=== PATIENT | female | born 1985 | race Caucasian/White ===

== ENCOUNTER 2019-01-05 12:47 | Emergency (ER) | payer MEDICAID ==
--- NOTE | 2019-01-05 14:46 | C.PDOC ---
History Of Present Illness 33 y/o female pt presents to the ER c/o subjective fever since last night. Associated sx includes chills, sore throat and cough. 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 Pt does not have any other associated sx or complaints at this time. Time Seen by Provider: 01/05/19 12:57 Chief Complaint (Nursing): Flu-like Symptoms History Per: Patient History/Exam Limitations: no limitations Onset/Duration Of Symptoms: Days (x1) Current Symptoms Are (Timing): Still Present Past Medical History Reviewed: Historical Data, Nursing Documentation, Vital Signs Vital Signs: Last Vital Signs Temp 99.7 F H 01/05/19 12:50 Pulse 112 H 01/05/19 12:50 Resp 18 01/05/19 12:50 BP 128/96 H 01/05/19 12:50 Pulse Ox 98 01/05/19 12:50 Family History: States: Unknown Family Hx - Social History Hx Tobacco Use: No Hx Alcohol Use: No Hx Substance Use: No - Immunization History Hx Tetanus Toxoid Vaccination: Yes Hx Influenza Vaccination: No Hx Pneumococcal Vaccination: No Review Of Systems Constitutional: Positive for: Fever (subjective), Chills ENT: Positive for: Throat Pain Respiratory: Positive for: Cough Gastrointestinal: Negative for: Nausea, Vomiting Skin: Negative for: Rash Neurological: Negative for: Weakness, Numbness Physical Exam - Physical Exam Appears: Non-toxic, No Acute Distress Skin: Warm, Dry, No Rash Head: Normacephalic Eye(s): bilateral: Normal Inspection Ear(s): Bilateral: Normal Nose: Normal Oral Mucosa: Moist Throat: Normal, No Erythema, No Exudate, Other (uvula midline) Cardiovascular: Rhythm Regular Respiratory: Normal Breath Sounds, No Rales, No Rhonchi, No Wheezing Neurological/Psych: Oriented x3, Normal Speech, Normal Cognition ED Course And Treatment O2 Sat by Pulse Oximetry: 98 (RA) Pulse Ox Interpretation: Normal Medical Decision Making Medical Decision Making: Plans: -- POC urine -- Ibuprofen -- tylenol -- tamiflu Disposition Counseled Patient/Family Regarding: Diagnosis, Need For Followup, Rx Given - Disposition Referrals: [facility] [Outside] Disposition: HOME/ ROUTINE Disposition Time: 16:17 Condition: GOOD Additional Instructions: Drink increased fluids. Gargle with warm salty water several times a day. Alternate Tylenol with Motrin every 4 hours for fever and pain. Increased rest. Follow up in [facility] in 2-3 days;. Return to ER for any worse symptoms. Take Tamlflu as prescribed. Prescriptions: Acetaminophen [Tylenol 325mg tab] 650 mg PO Q6 #30 tab Ibuprofen [Motrin] 600 mg PO TID #30 tab Oseltamivir Phosphate [Tamiflu] 75 mg PO BID #10 capsule Instructions: Flu, Adult (DC) Forms: [email or web address] (Syrian), General Discharge Instructions - Clinical Impression Clinical Impression: Influenza - PA / CALL CENTER CONSULTANT / Resident Statement / has reviewed & agrees with the documentation as recorded. - Scribe Statement The provider has reviewed the documentation as recorded by the Annalee Haddad Do All medical record entries made by the Scribe were at my direction and personally dictated by me. I have reviewed the chart and agree that the record accurately reflects my personal performance of the history, physical exam, medical decision making, and the department course for this patient. I have also personally directed, reviewed, and agree with the discharge instructions and disposition.
[2019-01-05 15:49] VITALS: PULSE 109; RESP 20; TEMP 99.7
[2019-01-05 16:03] VITALS: BP 108/70
[2019-01-05 16:19] VITALS: O2SAT 98
== END 2019-01-05 16:26 | disposition home or self-care (01) ==
LOC: C.ER 12:47
DX: J11.1 Influenza due to unidentified influenza virus with other respiratory manifestations (principal)

== ENCOUNTER 2019-02-18 20:15 | Emergency (ER) | payer MEDICAID ==
[2019-02-18 21:24] VITALS: BP 118/77; PULSE 97; RESP 16; TEMP 99; O2SAT 100
[2019-02-18] MEDS ORDERED: Amoxicillin-Clav 875-125 mg Tab PO STA (22:36)
--- NOTE | 2019-02-18 22:36 | C.PDOC ---
History Of Present Illness 34 year old female with abscess on her back for the past week, was started on bactrim by PCP, has been applying warm compresses and states wound is now draining. PCP told her if it did not improve after 2 days of using antibiotics to get reevaluated, she feels like it is worsening which prompted visit. Denies fever or chills. Time Seen by Provider: 02/18/19 21:43 Chief Complaint (Nursing): Abnormal Skin Integrity History Per: Patient History/Exam Limitations: no limitations Onset/Duration Of Symptoms: Days Current Symptoms Are (Timing): Still Present Location Of Injury: Posterior: Back Quality Of Symptoms: Draining Recent travel outside of the [place]: No Past Medical History Reviewed: Historical Data, Nursing Documentation, Vital Signs Vital Signs: Last Vital Signs Temp 99 F 02/18/19 21:15 Pulse 97 H 02/18/19 21:15 Resp 16 02/18/19 21:15 BP 118/77 02/18/19 21:15 Pulse Ox 100 02/18/19 21:15 Family History: States: Unknown Family Hx - Social History Hx Tobacco Use: No Hx Alcohol Use: No Hx Substance Use: No - Immunization History Hx Tetanus Toxoid Vaccination: Yes Hx Influenza Vaccination: No Hx Pneumococcal Vaccination: No Review Of Systems Constitutional: Negative for: Fever, Chills Musculoskeletal: Negative for: Back Pain Skin: Positive for: Other (Draining abscess) Physical Exam - Physical Exam Appears: Well, Non-toxic, No Acute Distress Skin: Warm, No Rash Head: Atraumatic, Normacephalic Oral Mucosa: Moist Back: Other (6cm area of induration with central opening draining yellow greenish pus. 1cm forming abscess to left back, no draining or fluctuance.) Neurological/Psych: Oriented x3, Normal Speech Gait: Steady ED Course And Treatment O2 Sat by Pulse Oximetry: 100 (Room air) Pulse Ox Interpretation: Normal Medical Decision Making Medical Decision Making: Abscess circumference was marked, since wound is already draining there is no need for I&D at this time, patient told to continue bactrim and given augmentin to take with it, wound culture was sent, patient stable for discharge. Disposition Counseled Patient/Family Regarding: Diagnosis, Need For Followup, Rx Given - Disposition Disposition: HOME/ ROUTINE Disposition Time: 22:37 Condition: STABLE Prescriptions: Amoxicillin/Clavulanate [Augmentin 875 MG-125 MG] 1 tab PO BID 10 Days tab Instructions: Skin Abscess Forms: [employer] [employer] (Faroese), General Discharge Instructions - Clinical Impression Clinical Impression: Abscess, Cellulitis - PA / BATH SOLUTION MAKER / Resident Statement MD/DO has reviewed & agrees with the documentation as recorded. - Scribe Statement The provider has reviewed the documentation as recorded by the Niviaibkuldeep Delaney All medical record entries made by the Niviaibkuldeep were at my direction and personally dictated by me. I have reviewed the chart and agree that the record accurately reflects my personal performance of the history, physical exam, medical decision making, and the department course for this patient. I have also personally directed, reviewed, and agree with the discharge instructions and disposition.
[2019-02-18] MEDS ORDERED: Amoxicillin-Clav 875-125 mg Tab PO ONE (22:48)
== END 2019-02-18 22:51 | disposition home or self-care (01) ==
LOC: C.ER 20:15
DX: L02.212 Cutaneous abscess of back [any part, except buttock and flank] (principal); L03.312 Cellulitis of back [any part except buttock and flank]

== ENCOUNTER 2019-03-25 08:45 | Emergency (ER) | payer MEDICAID ==
[2019-03-25 08:56] VITALS: O2SAT 98
[2019-03-25] MEDS ORDERED: Sodium Chloride 0.9% 1,000 ML IV ONE (09:24)
[2019-03-25] MEDS ORDERED: Sodium Chloride 0.9% 1,000 ML ONE (09:32)
--- NOTE | 2019-03-25 09:39 | C.PDOC ---
History Of Present Illness 34 year old female presents to ED with complaint of right upper quadrant pain that started at 3 am today. She also complains of associated nausea and loose stool. Patient has a PMHx of cholelithiasis. Her last gallbladder US was several years ago. She states that last night at 10pm she ate a salad with oil and vinegar. She denies vomiting, fever, dysuria, and hematuria. Time Seen by Provider: 03/25/19 09:02 Chief Complaint (Nursing): Abdominal Pain History Per: Patient History/Exam Limitations: no limitations Onset/Duration Of Symptoms: Hrs (6) Current Symptoms Are (Timing): Still Present Location Of Pain/Discomfort: RUQ Radiation Of Pain To:: None Quality Of Discomfort: "Pain" Associated Symptoms: Nausea, Other (loose stools). denies: Fever, Chills, Vomiting, Constipation, Urinary Symptoms Past Medical History Reviewed: Historical Data, Nursing Documentation, Vital Signs Vital Signs: Last Vital Signs Temp 97.7 F 03/25/19 08:53 Pulse 72 03/25/19 08:53 Resp 18 03/25/19 08:53 BP 119/77 03/25/19 08:53 Pulse Ox 98 03/25/19 08:53 Primary Care Provider: Non [facility] Provider, - Medical History PMH: Gall Bladder Disease (GB stone) Surgical History: No Surg Hx Family History: States: Unknown Family Hx - Social History Hx Tobacco Use: No Hx Alcohol Use: No Hx Substance Use: No - Immunization History Hx Tetanus Toxoid Vaccination: No Hx Influenza Vaccination: No Hx Pneumococcal Vaccination: No Review Of Systems Constitutional: Negative for: Fever, Chills, Weakness Gastrointestinal: Positive for: Nausea, Abdominal Pain (right upper quadrant), Other (loose stools). Negative for: Vomiting Genitourinary: Negative for: Dysuria, Frequency, Hematuria Musculoskeletal: Negative for: Back Pain Physical Exam - Physical Exam Appears: Non-toxic, No Acute Distress, Other (comfortable) Skin: Normal Color, Warm, Dry Head: Atraumatic, Normacephalic Neck: Normal ROM, Supple Chest: Symmetrical, No Deformity Cardiovascular: Rhythm Regular, No Murmur Respiratory: No Accessory Muscle Use, No Rales, No Rhonchi, No Wheezing Gastrointestinal/Abdominal: Soft, Tenderness (+English's sign), No Guarding, No Rebound, No Other (McBurney's point tenderness) Back: No CVA Tenderness Extremity: Capillary Refill (<2 seconds) Pulses: Left Dorsalis Pedis: Normal, Right Dorsalis Pedis: Normal Neurological/Psych: Oriented x3, Normal Speech, Normal Cognition ED Course And Treatment - Laboratory Results Result Diagrams: 03/25/19 09:39 03/25/19 09:39 O2 Sat by Pulse Oximetry: 98 (in RA) Pulse Ox Interpretation: Normal - CT Scan/US Abdomen US Other Rad Studies (CT/US): Read By Radiologist CT/US Interpretation: IMPRESSION: Cholelithiasis. Progress Note: Labs with CBC and UA ordered for patient. US of the right upper quadrant ordered for patient. Patient given IV fluids. Disposition Counseled Patient/Family Regarding: Studies Performed, Diagnosis, Need For Followup, Rx Given - Disposition Referrals: Blake Wilson MD [Staff Provider] - Disposition: HOME/ ROUTINE Disposition Time: 13:00 Condition: STABLE Additional Instructions: FOLLOW UP WITH GENERAL SURGEON WITHIN 1 WEEK AVOID FATTY/GREASY FOODS RETURN TO ER IF SYMPTOMS WORSEN Instructions: Gallstones (DC) Forms: [employer] (Polish), Work Excuse Print Language: STATELESS - Clinical Impression Clinical Impression: Gallstones - Scribe Statement The provider has reviewed the documentation as recorded by the Scribe (Shital Noriega) All medical record entries made by the Scribe were at my direction and personally dictated by me. I have reviewed the chart and agree that the record accurately reflects my personal performance of the history, physical exam, medical decision making, and the department course for this patient. I have also personally directed, reviewed, and agree with the discharge instructions and disposition.
[2019-03-25 09:43] LABS: BASO # 0.1 K/uL (0.0-0.2); EOS # 0.2 K/uL (0.0-0.7); EOS % 1.6 % (0.0-4.0); HEMOGLOBIN 12.3 g/dL (11.0-16.0); LYMPH # 1.6 K/uL (1.0-4.3); LYMPH % 15.8 % (20.0-40.0); MEAN CELL VOLUME 90.6 fL (81.0-99.0); MEAN CORPUSCULAR HEMOGLOBIN 30.8 pg (27.0-31.0); MEAN PLATELET VOLUME 9.2 fL (7.2-11.7); MONO # 0.4 K/uL (0.0-0.8); MONO % 4.2 % (0.0-10.0); NEUT % 77.4 % (50.0-75.0); RBC 3.99 Mil/uL (3.80-5.20); RED CELL DISTRIBUTION WIDTH 13.4 % (11.5-14.5); WHITE BLOOD COUNT 10.4 K/uL (4.8-10.8)
[2019-03-25 09:57] LABS: ALBUMIN 3.9 g/dL (3.5-5.0); ALT/SGPT 30 U/L (9-52); AST/SGOT 29 U/L (14-36); BLOOD UREA NITROGEN 10 mg/dL (7-17); CALCIUM 9.4 mg/dl (8.6-10.4); GFR NON-AFRICAN AMERICAN > 60; LIPASE 73 U/L (23-300)
[2019-03-25 10:09] LABS: HCG,QUALITATIVE URINE NEGATIVE (NEGATIVE)
[2019-03-25 10:27] LABS: SQUAMOUS EPITHIAL 4 /hpf (0-5); URINE BACTERIA FEW (<OCC); URINE BILIRUBIN NEGATIVE (NEGATIVE); URINE BLOOD NEGATIVE (NEGATIVE); URINE CLARITY Hazy (Clear); URINE COLOR Straw (YELLOW); URINE GLUCOSE (UA) NORMAL (Normal); URINE LEUKOCYTE ESTERASE 2+ Leu/uL (Negative); URINE PROTEIN NEGATIVE (NEGATIVE); URINE UROBILINOGEN NORMAL mg/dL (0.2-1.0)
--- NOTE | 2019-03-25 12:10 | US ---
Date of service: 03/25/2019 HISTORY: RUQ PAIN R/O CHOLECYSTITIS COMPARISON: Limited abdominal ultrasound performed 01/08/14 TECHNIQUE: Sonographic evaluation of the right upper quadrant of the abdomen. FINDINGS: LIVER: Measures 18.1 cm in length. Normal echogenicity of the liver parenchyma. No focal hepatic mass identified. The main portal vein appears patent with normal directional flow. No intrahepatic bile duct dilatation. GALLBLADDER: Gallstone. No gallbladder wall thickening or pericholecystic edema. Negative sonographic English's sign as assessed by the environmental manager. COMMON BILE DUCT: Measures 4 mm. PANCREAS: Not well-visualized. RIGHT KIDNEY: Measures [id number] x 4.6 x 5.8 cm. No obstructing calculus or hydronephrosis identified.. AORTA: Limited visualization appears grossly unremarkable. IVC: Limited visualization appears grossly unremarkable. OTHER FINDINGS: None . IMPRESSION: Cholelithiasis.
[2019-03-25 13:09] VITALS: BP 115/76; PULSE 75; RESP 18; TEMP 98.1
== END 2019-03-25 13:30 | disposition home or self-care (01) ==
LOC: C.ER 08:45
DX: K80.20 Calculus of gallbladder without cholecystitis without obstruction (principal)
CPT/HCPCS: 76705; 80053; 81001; 83690; 84703; 85025; 96360; 99285; J7030